=== PATIENT | male | born 1985 | race Caucasian/White ===

== ENCOUNTER 2020-11-16 05:54 | Day surgery (SDC) | payer BC ==
[~2020-11-16] VITALS: Ht 175.3 cm; Wt 110.9 kg
[~2020-11-16 05:54] MED LIST: AMOX500 PO; IBUP800 PO; Norco 5-325 Ta1 EACH PO; PROM25 PO; RXLORA1 PO; SEROQUEL
--- NOTE | 2020-11-16 07:20 | NUR ---
History, Chart, Medications and Allergies reviewed before start of procedure. Lungs clear T/O to Auscultation. Patient confirms NPO status and agrees with scheduled surgery. Pre-Op teaching done. Pt verbalizes understanding. Patient States Post-Procedure ride home has been arranged. Patient reports completing Chlorhexadine shower X2 prior to admission to hospital.
--- NOTE | 2020-11-16 10:19 | NUR ---
PT AWAKE AND ORIENTED, PAIN IS AT A TOLERABLE LEVEL. CIRCULATION REMAINED STABLE THROUGHOUT RECOVERY ON RT FOOT WITH WARM TOES AND A CAP REFILL LESS THAN 3 SECONDS. ALL BELONINGS RETURNED. PT RECEIVED A TOTAL OF TWO PAIN MEDS. Discharge instructions reviewed with patient. Patient verbalizes understanding. Copy given to patient to take home. Dressing to procedure site clean, dry, intact with no visible drainage, swelling, erythema or bruising noted. Patient States Post-Procedure ride home has been arranged. Discharged via wheelchair to private car for ride home.
== END 2020-11-16 10:35 | disposition home or self-care (01) ==
LOC: ORSCMMR 05:54 → ORD 07:30 → ORSCSDS 07:30 → ORSCMMR 07:30
PROVIDERS: Podiatrist Foot & Ankle Surgery
PROC: 0QSG04Z Reposition Right Tibia with Internal Fixation Device, Open Approach (ICD-10-PCS; principal; 2020-11-16 07:30)
PROC: 0QSJ04Z Reposition Right Fibula with Internal Fixation Device, Open Approach (ICD-10-PCS; principal; 2020-11-16 07:30)
DX: S82.841A Displaced bimalleolar fracture of right lower leg, initial encounter for closed fracture (principal); E66.01 Morbid (severe) obesity due to excess calories; Z68.36 Body mass index [BMI] 36.0-36.9, adult; F17.210 Nicotine dependence, cigarettes, uncomplicated
CPT/HCPCS: A9270; C1713; J0171; J1100; J1885; J2250; J2405; J2704; J3010; J7120